=== PATIENT | female | born 1965 | race African-American/Black ===

== ENCOUNTER 2023-07-30 18:48 | Emergency (ER) | payer MEDICAID, OTHER ==
[~2023-07-30] VITALS: Ht 167.6 cm; Wt 100.0 kg
[2023-07-30 18:51] VITALS: TEMP 98.5; O2SAT 96
[2023-07-30] MEDS ORDERED: TETANUS, DIPHTHERIA, PERTUSSIS VAC/PF 0.5ML (>10YR OLD) IM ONE ×2 (19:15→21:00)
[2023-07-30] MEDS ORDERED: LIDOCAINE HCL/EPINEPHRINE 1%-EPI 1:100,000 20 ML VIAL INFIL ONE ×2 (19:15)
[2023-07-30] MEDS ORDERED: HYDROCODONE/ACETAMINOPHEN 5/325MG TABLET PO ONE (19:15)
[2023-07-30 21:00] VITALS: BP 154/96; PULSE 107; RESP 18
[2023-07-30] MEDS ORDERED: HYDROCODONE/ACETAMINOPHEN 5/325MG TABLET PO NR (21:00)
[2023-07-30] MEDS ORDERED: IBUP-2029 MT (22:54)
[2023-07-30] MEDS ORDERED: CEPH500C2 MT (22:54)
== END 2023-07-31 00:36 | disposition home or self-care (01) ==
LOC: ER 20:48
DX: S41.111A Laceration without foreign body of right upper arm, initial encounter (principal); E11.9 Type 2 diabetes mellitus without complications; I10 Essential (primary) hypertension; W25.XXXA Contact with sharp glass, initial encounter; Y93.89 Activity, other specified; Y92.89 Other specified places as the place of occurrence of the external cause; Y99.8 Other external cause status
CPT/HCPCS: 12036; 99285; 90715; 12002; 90471; J3490; 12007; 99284